=== PATIENT | male | born 1980 | race Caucasian/White ===

== ENCOUNTER → 2020-08-15 14:28 | Outpatient (CLI) | payer OTHER, SELFPAY ==
[2020-08-15] MEDS: COVID-19 VACC #1, MRNA(MOD) 100 MCG/0.5 ML VIAL IM (14:37)
== END ==
PROVIDERS: Visit Provider Internal Medicine
DX: Z23 Encounter for immunization (principal)
CPT/HCPCS: 0011A; 91301

== ENCOUNTER → 2020-09-12 13:56 | Outpatient (CLI) | payer OTHER, SELFPAY ==
[2020-09-12] MEDS: COVID-19 VACC #2, MRNA(MOD) 100 MCG/0.5 ML VIAL IM (14:02)
== END ==
PROVIDERS: Visit Provider Internal Medicine
DX: Z23 Encounter for immunization (principal)
CPT/HCPCS: 0012A; 91301

== ENCOUNTER → 2021-07-15 09:42 | Outpatient (CLI) | payer OTHER, SELFPAY ==
--- NOTE | 2021-07-15 | DI.MRI.S_ITS ---
PROCEDURE: MR SHOULDER RT WO CON INDICATIONS: Pain in right shoulder TECHNIQUE: Noncontrast oblique coronal T2 fast spin echo with fat saturation, oblique sagittal T1 spin echo and T2 fast spin echo with fat saturation, axial T1 spin echo and T2 fast spin echo with fat saturation through the shoulder. COMPARISON: None. FINDINGS: Image quality: Excellent. Rotator cuff: There is partial-thickness tear of the supraspinatus and infraspinatus tendons involving both articular and bursal surface. There is superimposed tendinitis of the supraspinatus and infraspinatus tendons. The subscapularis tendon appears intact with mild tendon thickening consistent with tendinitis. Sagittal images demonstrate no rotator cuff muscle atrophy. Bones and bursae: No bone marrow contusions or fractures. There is marrow edema in the distal clavicle. Mild acromioclavicular and glenohumeral joint degeneration joint degeneration. The acromion demonstrates conventional anatomy, without an os acromiale. No pathologic subacromial-subdeltoid or subcoracoid bursal fluid is present. Capsule and soft tissues: Labrum appears intact. The long head of the biceps tendon demonstrates normal location and morphology. The rotator interval appears normal, without fibrosis. The coracohumeral ligament is normal in thickness. IMPRESSION: 1. Partial thickness tear of the supraspinatus and infraspinatus tendons and superimposed tendinitis. 2. Mild subscapularis tendinitis. 3. Bone marrow edema in the distal clavicle suggesting bone contusion. Recommend clinical history of of trauma. If no history of trauma and clinical symptoms persist, recommend comparison radiograph for as initial follow-up. 4. Mild acromioclavicular and glenohumeral joint degeneration. Dictated by: Ziggy Frye M.D. on 07/15/2021 at 10:59 Approved by: Ziggy Frye M.D. on 07/15/2021 at 11:07
== END ==
PROVIDERS: PCP Family Medicine; Referring Provider Family Medicine; Visit Provider Family Medicine
DX: M75.111 Incomplete rotator cuff tear or rupture of right shoulder, not specified as traumatic (principal); M19.011 Primary osteoarthritis, right shoulder; M77.8 Other enthesopathies, not elsewhere classified; M25.511 Pain in right shoulder
CPT/HCPCS: 73221

== ENCOUNTER → 2021-08-03 15:21 | Outpatient (CLI) | payer OTHER, SELFPAY ==
--- NOTE | 2021-08-03 15:24 | DI.RAD.S_ITS ---
PROCEDURE: XR KNEE LT 3V INDICATIONS: PAIN IN LEFT KNEE TECHNIQUE: 3 views of the knee were acquired. COMPARISON: None. 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 No suspicious bony lesions. Soft tissues: No joint effusion. No suspicious soft tissue calcifications. 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 No acute osseous lesion. If symptoms and/or clinical suspicion for pathology persists, further assessment with repeat radiographs (7-10 days) or advanced imaging (e.g. CT, MRI or bone scan) should be considered. Dictated by: Jazlyn Emerson MD, PhD on 08/03/2021 at 17:14 Approved by: Jazlyn Emerson MD, PhD on 08/03/2021 at 17:15
== END ==
PROVIDERS: PCP Family Medicine; Referring Provider Family Medicine; Visit Provider Family Medicine
DX: M25.562 Pain in left knee (principal)
CPT/HCPCS: 73562